=== PATIENT | male | born 1960 | race Caucasian/White ===

== ENCOUNTER 2017-11-05 01:14 | Emergency (ER) | payer OTHER ==
[~2017-11-05] VITALS: Ht 177.8 cm; Wt 91.0 kg
[2017-11-05 01:40] VITALS: BP 144/84
== END 2017-11-05 02:37 | disposition left against medical advice (07) ==
LOC: ER 01:14
DX: R06.02 Shortness of breath (principal); R42 Dizziness and giddiness; R41.0 Disorientation, unspecified; R06.9 Unspecified abnormalities of breathing; Z53.21 Procedure and treatment not carried out due to patient leaving prior to being seen by health care provider
CPT/HCPCS: 93005; 99283